=== PATIENT | female | born 1985 | race Two or more races ===

== ENCOUNTER 2017-04-01 20:26 | Emergency (ER) | payer MEDICAID, OTHER ==
[~2017-04-01] VITALS: Ht 167.6 cm; Wt 52.2 kg
[2017-04-01 20:28] VITALS: BP 130/82
== END 2017-04-01 20:49 | disposition home or self-care (01) ==
LOC: ER 20:26
DX: Z76.0 Encounter for issue of repeat prescription (principal); F32.9 Major depressive disorder, single episode, unspecified; F43.10 Post-traumatic stress disorder, unspecified; Z88.8 Allergy status to other drugs, medicaments and biological substances
CPT/HCPCS: 99283; A4606; Z7610